=== PATIENT | male | born 1990 | race Caucasian/White ===

== ENCOUNTER 2022-04-21 16:30 | Emergency (ER) | payer OTHER ==
[2022-04-21 16:35] VITALS: RESP 18; TEMP 98
[2022-04-21] MEDS ORDERED: KETOROLAC 15 MG/ML 1 ML VIAL IM STA (17:16)
--- NOTE | 2022-04-21 17:41 | ED ---
Extremity Problem HPI - General Chief complaint: Extremity Problem,Nontraumatic Stated complaint: leg pain Time Seen by Provider: 04/21/22 16:35 Source: patient, RN notes reviewed Mode of arrival: ambulatory Limitations: no limitations - History of Present Illness Initial comments: Patient is a 32-year-old male presents the emergency room with complaints of left thigh pain which starts in his groin and radiates downward into his thigh. He denies any range of motion impairment not related to pain. He denies any trauma or swelling. He reports that the pain began approximately 3 weeks ago after lifting a heavy object at work. He has been evaluated by urgent care at his primary care provider previously. X-ray of his left femur was negative according to the patient at urgent care recently. He was placed on muscle relaxer and a Medrol Dosepak which is helping some but not significantly with his pain. He does continue to work regularly lifting heavy objects. He denies any popping or locking of the joint. He denies any crying bulge or weakness. He denies any numbness, tingling, fevers, or chills. He denies any other significant past medical history complaints or concerns at this time. - Related Data Previous Rx's Medication Instructions Recorded predniSONE 50 mg PO DAILY 5 Days #5 tablet 04/21/22 Allergies Allergy/AdvReac Type Severity Reaction Status Date / Time No Known Allergies Allergy Verified 04/21/22 16:35 Review of Systems ROS Statement: Those systems with pertinent positive or pertinent negative responses have been documented in the HPI. ROS Other: All systems not noted in ROS Statement are negative. Past Medical History Past Medical History: No Reported History History of Any Multi-Drug Resistant Organisms: None Reported Past Surgical History: Appendectomy Past Psychological History: No Psychological Hx Reported Smoking Status: Never smoker Past Alcohol Use History: None Reported Past Drug Use History: None Reported General Exam Limitations: no limitations General appearance: alert, in no apparent distress Head exam: Present: atraumatic, normocephalic, normal inspection Eye exam: Present: normal appearance, PERRL, EOMI. Absent: scleral icterus, conjunctival injection, periorbital swelling ENT exam: Present: normal exam, mucous membranes moist Neck exam: Present: normal inspection Respiratory exam: Absent: respiratory distress, accessory muscle use Left Hip exam: Present: normal inspection, full ROM. Absent: tenderness Upper Leg exam: Present: normal inspection, full ROM, tenderness. Absent: swelling, abrasion, laceration, ecchymosis, deformity, crepitus, dislocation, erythema Neurovascular tendon exam: Present: no vascular compromise Gait: observed and normal Back exam: Present: normal inspection, full ROM. Absent: tenderness, muscle spasm, paraspinal tenderness, vertebral tenderness Neurological exam: Present: alert, oriented X3, CN II-XII intact Psychiatric exam: Present: normal affect, normal mood Skin exam: Present: warm, dry, intact, normal color. Absent: rash Course Vital Signs 04/21/22 04/21/22 16:31 18:16 Temperature 98.0 F Pulse Rate 71 78 Respiratory 18 18 Rate Blood Pressure 151/101 148/88 O2 Sat by Pulse 100 99 Oximetry Medical Decision Making - Medical Decision Making 32-year-old male presenting to the emergency room with complaints of left thigh pain ongoing for approximately 3 weeks after lifting a heavy object at work. Continues to work regularly. Evaluated by urgent care with x-ray of the left femur without abnormality seen. Exam unremarkable. Tenderness to quadricep in multiple areas. Full range of motion. No indication for further diagnostic imaging at this time. No laboratory studies indicated at this time. Will give Toradol IM for pain and monitor response. Pain improved with injection. No need for further diagnostic imaging or testing. Will place on higher dose steroid bursts advised to stop Medrol Dosepak and no other NSAIDs while taking medication. Encouraged rest and avoidance of heavy lifting. Will discharge home with conservative management advised to follow-up with his primary care provider for further imaging and workup. Case discussed with Dr. Fung. Disposition Clinical Impression: Quadriceps tendinitis Disposition: HOME SELF-CARE Condition: Stable Instructions (If sedation given, give patient instructions): Tendinitis (ED), Exercise Safety (ED) Additional Instructions: Please complete dose of steroids prescription as prescribed. Do not take any other NSAIDs or steroids when taking prednisone. May continue muscle relaxer as prescribed by urgent care to avoid heavy lifting. Range of motion as tolerated encouraged. Please follow-up with your primary care provider's office for further evaluation and workup of your pain. Please return to the Emergency Department if symptoms worsen or any other concerns. Prescriptions: predniSONE 50 mg PO DAILY 5 Days #5 tablet Is patient prescribed a controlled substance at d/c from ED?: No Referrals: None,Stated [REFERRING] - 1-2 days
[2022-04-21 18:16] VITALS: BP 148/88; PULSE 78
== END 2022-04-21 18:16 | disposition home or self-care (01) ==
LOC: EC 16:30
DX: M77.8 Other enthesopathies, not elsewhere classified (principal)
CPT/HCPCS: 99283; 96372; J1885

== ENCOUNTER → 2022-06-03 | Outpatient (CLI) | payer OTHER ==
--- NOTE | 2022-06-03 10:01 | MR ---
EXAMINATION TYPE: MR lumbar spine wo con DATE OF EXAM: 06/03/2022 COMPARISON: Lumbar spine radiograph 05/12/2022. HISTORY: Lumbar and L hip pain TECHNIQUE: Multiplanar, multisequence images of the lumbar spine were acquired without IV contrast. FINDINGS: Lumbar segments are intact. No paraspinal masses are identified. Conus medullaris has a normal appe arance. Multilevel disc desiccation present L1-L2: Eccentric left broad-based disc bulge with annular fissure. Facet arthropathy demonstrated. Mo derate spinal canal stenosis at this level. Right neural foramen is patent. Mild left neural foramina l stenosis. L2-L3: Left central disc protrusion with extension into the subarticular zone and caudal extrusion of approximately 7 mm. There is facet arthropathy with moderate spinal canal stenosis. Mild bilateral n eural foraminal stenosis. L3-L4: Broad-based disc bulge and ligamentum flavum buckling and facet hypertrophy contribute to mild spinal canal stenosis. Mild bilateral neural foraminal stenosis. L4-L5: Broad-based disc bulge and ligamentum flavum buckling and facet hypertrophy contribute to mode rate spinal canal stenosis. Mild to moderate bilateral neural foraminal stenosis. L5-S1: Broad-based disc bulge with facet arthropathy. There is mild central canal stenosis. Mild-to-m oderate bilateral neural foraminal stenosis. IMPRESSION: 1. L2-L3 disc herniation with caudal extrusion resulting in moderate spinal canal stenosis. 2. Multilevel degenerative disc disease with varying degrees of spinal canal stenosis and neuroforam inal stenosis as described above.
--- NOTE | 2022-06-04 05:21 | MR ---
EXAMINATION TYPE: MR hip LT wo con DATE OF EXAM: 06/03/2022 COMPARISON: None HISTORY: Lumbar and L hip pain MRI scan of the left hip. Multiplanar multi echo imaging of the pelvis and left hip without contrast. The proximal femurs are intact. Pelvic ring is intact. No evidence of avascular necrosis. Hip joint s paces are fairly normal. Bladder distends smoothly. No free fluid in the pelvis. No sign of a pelvic mass. No evidence of a soft tissue mass. No pathologic fluid collection. No evidence of any significa nt hip joint effusion. IMPRESSION: Negative MRI scan of the left hip.
== END | disposition home or self-care (01) ==
LOC: RADMRIMAIN 07:38
PROVIDERS: ATTEND Orthopaedic Surgery
DX: M54.50 Low back pain, unspecified (principal); M25.552 Pain in left hip
CPT/HCPCS: 72148

== ENCOUNTER → 2022-08-07 | Outpatient (CLI) | payer OTHER ==
[2022-08-07 11:02] VITALS: BP 148/89; PULSE 74; RESP 18; TEMP 97.6
--- NOTE | 2022-08-07 14:33 | P.PAINPG ---
PQRS Measure Charge Sheet Comment: HISTORY OF PRESENT ILLNESS: 32 yr old male w at side as a referral from Dr Julio presents today w severe and chronic secondary to for evaluation. Pt states pain level is at 9 /10 in intensity, constant, localized in the mid lumbar spine, burning in character w shooting pain towards the LLE. Pain is provoked by twisting, lifting, bending. Pain is alleviated by home exercise daily, heat, medications (Naproxen, Prednisone taper), repositioning and rest. PMH: OA PSH: Appendectomy (2009) SH: Negative x 3. . FH: Sister- DM. All: NKDA Meds: See list REVIEW OF ORGAN SYSTEMS: CONSTITUTIONAL: No fevers or chills. No recent weight loss. NEUROLOGICAL: + numbness and tingling along the distal extremities. No seizure disorders or headaches. MUSCULOSKELETAL: + pain PSYCHIATRIC: Denies current depression or suicidal thoughts. Physical Examinations : Constitutional : Cooperative , not in acute distress . Neurologic : Cranial nerve II to XII intact. No focal neurological deficits. Psychiatric : alert & oriented x 3. Matching mood & appropriate affect. Judgment & insight intact. Musculoskeletal : Cervical Spine Motor strength in the deltoid and biceps: Normal right side. Normal Left side Motor strength biceps and the wrist extensors: Normal right side . Normal left side Motor strength in the triceps muscle: Normal right side. Normal left side Deep tendon reflexes: Normal at the biceps. Normal at Brachioradialis. Normal at triceps Vertebral body tenderness to deep palpation over Cervical facet loading test: positive bilaterally Spurling test: positive bilaterally Neck distraction test: positive maggie aterally Markus sign: positive bilaterally Lumbar spine Motor strength lower extremities ,thigh and legs 5/5 Right side , 5/5 Left side Deep tendon reflexes : Normal Knee Jerk. Normal Ankle Jerk Vertebral body tenderness over L2 Lumbar facet Loading Test: positive Right / positive Left Range of motion of the lumbar spine Flexion 30 degrees, extension 10 degrees Straight Leg Raise test: Left/ Right positive at degree Maryam test: positive right / positive left. Severe tenderness over the Sacroiliac joint on the Right / Left sides Gaenslen test: positive bilaterally Seated flexion test: positive bilaterally. Sacral spine : Severe tenderness over the Sacroiliac joint: right side / left side Range of motion: Flexion of the lumbar spine <60 degrees Range of motion: Extension of the lumbar spine <20 degrees Gaenslen's Test positive Winston's Test positive Maryam test: positive right side / left side Thigh Thrust Test Sacral Thrust Test Imaging: MRI without contrast of the lumbar spine from 06/10/22 reviewed Assessment/ Plan : Lumbar DDD, Lumbar spondylosis Recommendation of LIANET L2-L3. May need a series of injections, up to 3 within a 6 mo period for optimal pain relief. Risks, benefits of procedure discussed and patient verbalized understanding. Admits to aspirin or anti- coagulant use or medical history of diabetes. Protocol for discontinuation/ continuation of medications michelle procedure discussed. All questions answered. I have spent greater than 30 minutes on patient care today. Dr Cabrera was available by phone for the evaluation of this patient. The time was used to review the medical records including relevant urine studies and Prescription history (MAPs), review of the available imaging, evaluation and examination of the patient, coordination of care with the medical staff and if applicable referring physicians, as well as creation of the medical record - Pain Location Lower Back Non-Pharmacological Interventions: Heat, Home Exercise, Stretching Pharmacological Interventions: PRN Medication Home Medications: Ambulatory Orders predniSONE 50 mg PO DAILY PRN 08/07/22 Controlled Substance Measures - Controlled Substance Measures Is patient prescribed a controlled substance at discharge?: No
== END ==
LOC: PNWHC3 10:27
PROVIDERS: ATTEND Specialist
DX: M47.816 Spondylosis without myelopathy or radiculopathy, lumbar region (principal); M51.36 Other intervertebral disc degeneration, lumbar region; M19.90 Unspecified osteoarthritis, unspecified site
CPT/HCPCS: 99211

== ENCOUNTER → 2023-11-11 | Outpatient (CLI) | payer OTHER ==
--- NOTE | 2023-11-11 11:52 | MR ---
EXAMINATION TYPE: MR lumbar spine wo con DATE OF EXAM: 11/11/2023 COMPARISON: 06/03/2022 HISTORY: Lower back pain, BLE radiculopathy. TECHNIQUE: T1 and T2 axial and sagittal images of the lumbar spine are submitted. FINDINGS: There is no abnormal signal seen within the visualized spinal cord or paraspinal soft tissu es. There is loss of normal lordosis with straightening of the lumbar spine. Incidental note made of a retroaortic left renal vein. At L1-2 there is degenerative disc disease with broad-based disc herniation greater paracentrally to the left with moderate canal stenosis and bilateral foraminal encroachment. Mild facet arthropathy. F indings similar to prior exam. At L2-3 there is degenerative disc disease with broad-based disc herniation, moderate canal stenosis. There is bilateral foraminal engorgement, facet arthropathy and ligamentum urgently. There remains a component of disc extrusion posterior to the upper margin of the L3 segment which may be slightly im proved. At L3-4 there is circumferential disc bulging with no canal stenosis or focal herniation. Facet arthr opathy and ligamentum flavum hypertrophy. Mild bilateral foraminal At L4-5 there is broad-based central disc herniation with facet arthropathy, bilateral foraminal bulg ing and moderate canal stenosis. Following the disc appears to extend along the upper margin of L5 ve rtebral segment compatible with disc extrusion and similar to the prior exam. At L5-S1 there is degenerative disc disease with broad-based central disc protrusion, facet arthropat hy and mild right and moderate left foraminal protrusion. Borderline central stenosis. Findings IMPRESSION: 1. Multilevel disc herniation, canal stenosis and foraminal encroachment appears stable as discussed above. Findings most marked at L1-2, L2-3 and L4-5.
== END | disposition home or self-care (01) ==
LOC: RADMRIMAIN 10:40
PROVIDERS: ATTEND Orthopaedic Surgery
DX: M48.061 Spinal stenosis, lumbar region without neurogenic claudication (principal); M51.16 Intervertebral disc disorders with radiculopathy, lumbar region
CPT/HCPCS: 72148

== ENCOUNTER → 2024-02-05 | Outpatient (CLI) | payer OTHER ==
[2024-02-05 19:04] LABS: INR 1.01 sec (0.93-1.11); Prothrombin Time 10.9 sec (9.9-11.9)
[2024-02-06 03:45] LABS: HCT 40.3 % (39.6-50.0); HGB 13.4 g/dL (13.0-17.0); MCH 27.9 pg (27.0-32.0); MCHC 33.3 g/dL (32.0-37.0); Mean Platelet Volume 10.4 FL (9.5-12.2); NRBC Per 100 WBC 0 X 10*3/uL (0.00-0.01); Platelet Count 395 X 10*3/uL (140-440); RDW 12.6 % (11.5-14.5); WBC 4.25 X 10*3/uL (4.50-10.00)
[2024-02-06 05:04] LABS: BUN/Creat Ratio 15.14 Ratio (12.00-20.00); Blood Urea Nitrogen 10.6 mg/dL (9.0-27.0); Glucose 98 mg/dL (70-110)
[2024-02-06 05:05] LABS: ALT 32 U/L (10-49); AST 25 U/L (14-35); Albumin 4.6 g/dL (3.8-4.9); Albumin/Globulin Ratio 1.92 Ratio (1.60-3.17); Alkaline Phosphatase 52 U/L (41-126); Calcium 9.5 mg/dL (8.7-10.3); Carbon Dioxide 24.8 mmol/L (21.6-31.8); Chloride 108 mmol/L (96-109); Globulin 2.4 g/dL (1.6-3.3); Potassium 4.2 mmol/L (3.5-5.5); Sodium 143 mmol/L (135-145); Total Bilirubin 0.2 mg/dL (0.3-1.2)
== END | disposition home or self-care (01) ==
LOC: LABPAT 14:29
PROVIDERS: ATTEND Orthopaedic Surgery
DX: M51.26 Other intervertebral disc displacement, lumbar region (principal); M48.061 Spinal stenosis, lumbar region without neurogenic claudication
CPT/HCPCS: 80053; 82306; 85027; 85610; 86850; 86900; 86901; 87070

== ENCOUNTER 2024-02-16 05:44 | Day surgery (SDC) | payer OTHER ==
[~2024-02-16 05:44] MED LIST: ONDANSETRON 4 MG/2 ML VIAL IVP PRN; TRANEXAMIC 1,000 MG/100ML-NACL 1,000 MG in SALINE 1 100ML.BAG IVPB PRN
[2024-02-16] MEDS ORDERED: LIDOCAINE 1% (10MG/ML) FOR IV START INTRADERMA PRN (06:03)
[2024-02-16] MEDS ORDERED: DEXAMETHASONE SOD PHOSPHATE 4 MG/ML 1 ML VIAL IV ONE (06:03)
[2024-02-16] MEDS: ACETAMINOPHEN TAB 500 MG TAB PO PRN (06:13)
[2024-02-16] MEDS: GABAPENTIN 300 MG CAP PO PRN (06:14)
--- NOTE | 2024-02-16 06:18 | P.HPOR ---
History of Present Illness H&P Date: 02/16/24 .T:Title: BRIGITTE MIX [facility] HISTORY AND PHYSICAL Age: 33 year Height: 5'7" Weight: 205 lbs BMI: 29.76 kg/m2 Occupation: [employer] VAS: 2 CC: Re-check on low back pain / Review MRI lumbar spine results HISTORY: Mr. Corbin presents to the office today, 11/11/23, for re-evaluation of lo back pain and to review MRI lumbar spine results. He continues plan of low back pain as well as lower extremity radiculopathy and pain that goes down the front of his thighs and into his legs. He complains of pain that goes down the back of his legs and his feet well. He states continued weakness in his right lower extremity and left lower extremity to more extend. He denies any bowel or bladder issues. Denies perineal numbness or tingling at this time. Patient denies any f/c/sob/cp, perineal numbness or tingling, bowel or bladder incontinence/retention. Patient is ambulatoryindependently today. The patients' past social, medical, family, surgical history, as well as review of systems, have been reviewed. Please refer to the Neurosurgery History and Physical form that has been scanned into our electronic medical record system. 16 points review of systems completed and as stated in HPI, all other systems reviewed are negative. PAST TREATMENTS: PAST IMAGING: - Yes TRAUMA RELATED: - No WORK RELATED: - No PT IN LAST 6 MONTHS: - Yes (stopped approximately 5 to 6 months ago_; made symptoms worse PHYSICIAN DIRECTED HOME EXERCISE PROGRAM: - Yes; no significant relief ACTIVITY MODIFICAITON: - Yes MEDICATIONS: - OTC Tylenol, OTC Ibuprofen, & Prednisone 20 mg ALTERNATIVE INTERVENTIONS (CHIROPRACTIC, ACCUPUNCTURE, MASSAGE, RICE): - Home ice therapies and rest; mild, temporary relief BRACING: - No INJECTIONS (LIANET, TF, RFA): - Yes; lumbar ESIs (x1-2) without relief MEDICAL HISTORY: Social History: Reviewed, see appropriate section of the chart for details. Family History: Reviewed, see appropriate section of the chart for details. P2 Past Medical History: Reviewed, see appropriate section of the chart for details. P1Rx: ibuprofen 200 mg tablet Ref: 0 Rx: TylenoL 325 mg tablet Ref: 0 Rx: predniSONE 20 mg tablet Ref: 0 IMAGING Study Findings XRAY No new x-rays taken in office today. Please see previous notes. CT N/A MRI Date: 11/11/2023 Location: [facility] Hospital Region:Lumbar Contrast:N MRI is reviewed and demonstrates multilevel disc herniation and spondylosis with varying degrees of stenosis. At L1-L2 there is disc herniation which is paracentral on the left-hand side causing foraminal stenosis as well as central stenosis which is moderate to severe. At L1-L2 there is disc herniation paracentral to the left hand side was also causing moderate stenosis. At L2-L3 there is central disc herniation which is causing mild stenosis. There is facet arthropathy with hypertrophy as well as bony facets. L3-L4 there is central disc herniation which is also causing mild to moderate stenosis with facet arthropathy and bogginess. At L4-L5 there is central disc herniation which is broad-based and wide causing central stenosis and bilateral foraminal stenosis with all you facets facet hypertrophy and ligamentum hypertrophy. At L5-S1 there is central disc herniation which is smaller causing mild stenosis. There are some facet arthropathy at this level as well which is [id number]. There is bilateral foraminal stenosis at L5-S1. All levels exhibited advanced spondylytic changes for age. There is flattening of the normal lumbar lordosis overall. No acute fracture or dislocations otherwise noted. PHYSICAL EXAM: General: AOX3, NAD, Well hydrate, Well nourished HEENT: No lumps or masses Extremities: No color changes, no pooling INTEGUMENT: Hairy Patches: ABSENT Dorsal Skin Dimples: Normal [employer] spots: ABSENT Surgical Incisions: None Muscle Appearance: Well formed, no atrophy PALPATION: Midline:NO Paracervical:NO Parathoracic:NO Paralumbar:Minimal SIJ TESTING: Yes TTP: No [place] Finger: No FABER4: No Compression:No Distraction:No Thigh thrust:No Hip thrust: No POSTURAL BALANCE: Coronal:BALANCED Sagittal:BALANCED Shoulder height: LEVEL Pelvic Girdle: LEVEL ROM AND APPEARANCE: Neck: UNRESTRICTED Lumbar:RESTRICTED Shoulders: Symmetrical Hips: Symmetrical Knees: Symmetrical Hands: Symmetrical Feet: Symmetrical VASCULAR STATUS: RUE- 2 LUE-2 RLE-2 LLE-2 Edema: NONE NEUROLOGICAL EXAMINATION: Mental Status: Awake, alert, oriented fully with normal attention, concentration and memory. Fluent appropriate speech. CRANIAL NERVES: I: Olfactory not tested. II: Visual acuity normal, no visual field deficit noted with confrontation. III,IV: Normal pupillary reflexes & intact extraocular movements without nystagmus. V,: Intact symmetrical facial sensation. VII: Intact symmetrical facial motor movementVIII: Hearing intact. IX,X: Intact gag, swallow, & normal voice. XI: Sternocleidomastoid, trapezius function intact. XII: Tongue midline with normal movements. TENSIONING: L'HERMITTE'S SIGN NEG SPURLUNG'S SIGN NEG CUBITAL COMPRESSION NEG TINELS AT WRIST NEG SLR/CROSSED SLR POS b/l MOTOR EXAM (0-5/5, NT) Muscle appearance:Symmetrical, without signs of atrophy or dystrophy UPPER EXTREMITY RIGHT LEFT Shoulder Abduction 5 5 Biceps 5 5 Triceps 5 5 Wrist Extension 5 5 Hand Intrnsics 5 5 [employer] Titles 5 5 LOWER EXTREMITY RIGHT LEFT Hip Flexion 4- 5 Knee Extension 4 5 Knee Flexion 5 5 Dorsiflexion 4 4 Plantarflexion 4 4 EHL 4 4 FHL 5 5 -Hand and finger dexterity intact bilaterally? YES -Dysdiadochokinesia examination negative bilaterally? YES -Toe heel walk / heel-toe walk intact while maintaining satisfactory balance? NO, PAIN -Squatting/straightening w/o assistance to a min of 60 degree knee flexion? Can do, but poor and with significant discomfort. -Single leg stance: ABLE but much weaker on the LEFT -Trendelenburg sign NEGATIVE B/L REFLEXES (0-4/2, NT): RUE- 2LUE- 2 RLE- 2 LLE- 2 PATHOLOGICAL REFLEXES: RIGHT LEFT LIZAMA'S ABSENT ABSENT CLONUS ABSENT ABSENT BABINSKI ABSENT ABSENT Rectal Tone: INTACT SENSATION (0-4, NT): RUE-2LUE-2 RLE-2 LLE-2 Dermatomal deficit: L2-3 LEFT, L4-5 RIGHT GAIT AND FUNCTIONAL EVALUATION: Ambulatory aids - NDEPENDENT Rombergs test - NEG IMPRESSION: It was my pleasure to have seen and examined Eliezer. I reviewed the patient's clinical syndrome, physical findings, and imaging studies during the appointment today. It is my impression that the patient has a diagnosis of. 1. 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 LE weakness 4. Low back pain PLAN: THERAPIES -Cont with ice as warrented -Cont with supplementation Vit D, Vit C, Ca2+, High protein diet -OK for massage or other alternative treament modalities as able. If it exacerbates your sx do not continue ACTIVITY -Avoid any heavy or excessive BLPPT MEDICATIONS -Take as directed IMAGING -MRI of the lumbar spine reviewed today in office with the patient SURGICAL RECOMMENDATION -L1-L2 MINIMALLY INVASIVE LAMINOFORAMINOTOMY LEFT DISCUSSION: -i HAD A LONG DISCUSSION WITH THE PATIENT ABOUT THE POTENTIAL SURGICAL INDICATIONS WELL WELL NONSURGICAL TREATMENT. hE HAS TRIED NONSURGICAL OPTIONS INCLUDING MEDICATIONS PHYSICAL THERAPY AND INJECTIONS ALL OF WHICH HAVE NOT HELPED HIM. hE HAS INCREASE IN SYMPTOMS WELL MORE ACUTE ONSET OF SYMPTOMS WORSENING OF SYMPTOMS AND SO hE HAS ELECTED FOR SURGICAL INTERVENTION AT THIS TIME. dUE TO HIS SYMPTOMS BEING WORSE IN HIS THIGHS WELL WEAKNESS IN HIS LEGS. wE DISCUSSED DOING A MINIMALLY INVASIVE APPROACH l1-l2 REGION FOR DECOMPRESSION HE UNDERSTANDS THAT THIS IS ONLY 1 LEVEL OF HIS STENOSIS AND HE MAY NEED FURTHER OPERATION MULTILEVEL STENOTIC FEATURES. hE WANTS TO TRY AND KEEP THE SURGERY SMALL POSSIBLE AT THIS TIME. hE IS AM ENABLE TO FURTHER SURGERY IF NEEDED HOWEVER HE DOES NOT WANT A LARGE SURGERY AT THIS TIME. wE DISCUSSED THIS AT LENGTH AND HE IS COMFORTABLE WITH THIS. Spine Surgery Risk Review Mr. Corbin is presenting for evaluation of low back and bilateral lower extremity pain, bilateral lower extremity numbness, tingling, and weakness, urinary incontinence. It was my pleasure to have seen and examined Mr. Corbin. In our visit today we have had a chance to go over subjective complaints, physical examination findings and treatments including the natural course history without intervention and various interventional options. The patients imaging demonstrates: MRI is reviewed and demonstrates multilevel disc herniation and spondylosis with varying degrees of stenosis. At L1-L2 there is disc herniation which is paracentral on the left-hand side causing foraminal stenosis as well as central stenosis which is moderate to severe. At L1-L2 there is disc herniation paracentral to the left hand side was also causing moderate stenosis. At L2-L3 there is central disc herniation which is causing mild stenosis. There is facet arthropathy with hypertrophy as well as bony facets. L3-L4 there is central disc herniation which is also causing mild to moderate stenosis with facet arthropathy and bogginess. At L4-L5 there is central disc herniation which is broad-based and wide causing central stenosis and bilateral foraminal stenosis with all you facets facet hypertrophy and ligamentum hypertrophy. At L5-S1 there is central disc herniation which is smaller causing mild stenosis. There are some facet arthropathy at this level as well which is [id number]. There is bilateral foraminal stenosis at L5-S1. All levels exhibited advanced spondylytic changes for age. There is flattening of the normal lumbar lordosis overall. No acute fracture or dislocations otherwise noted. On physical exam, Mr. Corbin demonstrates: I have explained to the patient that as their condition progresses it will cause further neurological deficits and eventual paralysis. Based on the patients imaging, physical exam, and the rapid progression and disabling nature of their symptoms, at this time I recommend surgery in the form of a: [Procedure] . I discussed the risk and benefits of this procedure at length with Mr. Corbin. The patient agreed to considered pursuing the procedure abovementioned. Prior to surgery, she should follow up with her PCP (Cardio, ID, IM etc) for clearance. Questions were invited and answered, and the patient wishes to proceed as outlined below. Currently, I am recommendin.[Proposed Surgery] 2.Follow up with PCP for surgical clearance 3.Review of surgical risks and benefits as well as an educational packet on the proposed surgical procedure. Risks: All surgical procedures come with inherent risks, including those related to positioning, anesthesia, intraoperative findings, and postoperative complications. It is important to understand that surgery does not come with any guarantee of a successful outcome as complications and adverse events are always possible. The patient was given a handout in office today discussing the surgical procedure and risks associated with the intervention, both of which were discussed with the patient. These risks include but are not limited to the following: * Experiencing same, different or even worse symptoms in back, neck, arms, or legs compared to before surgery. Requiring further surgery or other forms of treatment presently or at some time in the future at same or other levels of the intended spine surgery. On an extreme but fortunately relatively rare basis severe complication such as blindness, stroke, heart attack, temporary and/or permanent nerve injury, para lysis, coma, or may occur, sometimes without known explanation. Surgical complications may include but are not limited to risk of infection, fluid accumulation in the surgical dissection site, including a seroma or hematoma, that requires additional surgery, wound drainage, bleeding, new numbness or weakness, vision changes/loss, spinal fluid leakage, non-healing and/or infected incision, headaches, difficulty or inability to swallow, hoarseness, hemopneumothorax, pneumothorax, impotence, retrograde ejaculation, vaginal dryness; injury to nerves, spinal cord, blood vessels, lymphatics or other vital organs (i.e., bowel injury, injury to the great vessels); heterotopic bone formation; complications related to the hardware such as screws, rods, cages including misplaced hardware, device failure, instrumentation at the wrong spine level, hardware fracture/breakage, or hardware loosening; vertebral failure of the spinal column above or below the newly placed hardware; retained surgical instrumentations or devices and the need for further surgery. * Medical risks of the planned spine surgery include but are not limited to generalized Infections to the whole body or local areas outside of the surgical site (sepsis), heart attack, bleeding, anaphylaxis, meningitis, seizure, epilepsy, hearing loss, burn banegas, laceration of the head or other areas of the body, bruising, hypersensitivity of the skin, bladder over distension; allergic reaction; shoulder injury related to positioning; fat, blood and air clots to other areas of the body like heart, lungs, brain; failure of internal organs such as lungs, kidneys, liver and excessive bleeding. If blood transfusions are necessary, note that transfusions may cause intolerance reactions such as anaphylaxis or other complex reactions. Despite best efforts, the results of spine surgery might not heal in terms of bone, soft tissues such as skin, fascia, ligaments, and joints. Additionally, in order to achieve best possible results, spine surgery may be carried out beyond the initially planned levels and involve decompression, fusion including insertion of hardware at levels other than the original intended area of surgi brooks interest change some portions of the procedure in order to ensure the best possible outcomes. With spine surgery and spinal fusion, there are different off label uses of instrumentation (devices, implants and hardware) as well as biological substances (bone morphogenic proteins, demineralized bone matrix) as well as using extra bone from allograft sources (i.e. cadaver bone) or autograft (iliac crest bone, ribs, or the spine itself). The patient has been given information about these practices and their inherent risks and benefits. [facility] is an educational center that serves as a training facility for neurosurgical and orthopedic DUAL [employer] and Nursing students. Physician assistants are medically trained surgical providers who function in the outpatient, inpatient, and operating room setting under the direct supervision of the attending surgeon. [facility] has multiple operating rooms with single and overlapping rooms running daily. They currently function under the required guidelines as produced by the [facility] with regards to the overlapping rooms and will continue to comply with changes to this policy as they occur. The requirements include and are complied with as follows: (1) the critical portions of the overlapping rooms will not occur at the same time, (2) the attending physician will be physically present during the critical portions of the procedure and immediately available during the entire case, and (3) a back-up attending is designated should the primary attending not be immediately available. The patient has had a chance to review all the listed information, has been given print outs detailing this information, and has had all his/her questions answered to their satisfaction. It was my pleasure to have seen and examined Mr. Corbin. In our visit today we have had a chance to go over my understanding of our patient's current condition, the natural course history without intervention and various interventional options. Questions were invited and answered, and the patient wishes to proceed as outlined above. I have seen and examined the patient for 25 minutes and we have spent more than 50% of the time in repeat and detailed counseling about the patient's condition, its natural course history with out and as much as can be predicted with surgery and re-review of various surgical treatment options. In conclusion, Mr. Corbin requested we proceed with the above suggested surgery and are willing to accept risks and limitations of the suggested surgery as nature of the disease process and our best attempts at treatment for the condition. Thank you again for allowing us to be part of your patient's care. Please don't hesitate to contact me if you have any further questions. FOLLOW UP: Pre-operative Evaluation (1 week prior to scheduled surgery) PATIENT EDUCATION: Medications Reviewed: YES In our visit today Mr. Corbin and I have had a chance to go over my understanding of the patient's current condition, the natural course history without intervention and various interventional options. Questions were invited and answered, and the patient wishes to proceed as outlined above. I will be sure to keep you updated after Mr. Corbin returns here for further follow-up. Thank you again for your referral. Please do not hesitate to contact me if you have any further questions. Signed and authenticated by: Emir Molina [facility] [address] [place] [address] This message is confidential, intended only for the named recipient(s) and may contain information that is privileged or exempt from disclosure under applicable law. If you are not the intended recipient(s), you are notified that the dissemination, distribution or copying of this information is strictly prohibited. If you received this message in error, please notify the sender then delete this message. # SIGNED BY Emir Julio (GOO)02/16/2024 06:17AM Past Medical History Past Medical History: No Reported History Additional Past Medical History / Comment(s): 3 ruptured discs. spinal stenosis. has white coat syndrome History of Any Multi-Drug Resistant Organisms: None Reported Past Surgical History: Appendectomy Past Anesthesia/Blood Transfusion Reactions: Postoperative Nausea & Vomiting (PONV) Smoking Status: Never smoker - Past Family History Father Family Medical History: Cancer Medications and Allergies Home Medications Medication Instructions Recorded Confirmed Type Buprenorphine-Nalox 8-2 mg Tab 1 tab SUBLINGUAL HS 04/29/23 02/15/24 History [Suboxone 8-2 mg Tab] Allergies Allergy/AdvReac Type Severity Reaction Status Date / Time No Known Allergies Allergy Verified 02/15/24 08:06 Physical Examination Osteopathic Statement: *. No significant issues noted on an osteopathic structural exam other than those noted in the History and Physical/Consult.
[2024-02-16] MEDS: IV FLUID CONTINUATION 1,000 ML IV ONE ×4 (06:20→10:37)
[2024-02-16] MEDS: ONDANSETRON 4 MG/2 ML VIAL IVP ONE (06:32)
[2024-02-16] MEDS: LACTATED RINGERS 1,000 ML IV SCH (06:53)
[2024-02-16] MEDS ORDERED: MIDAZOLAM 2 MG/2 ML VIAL IV PRN (07:00)
[2024-02-16] MEDS ORDERED: SUCCINYLCHOLINE CHLORIDE 200 MG/10 ML VIAL IV ONE (07:23)
[2024-02-16] MEDS ORDERED: MIDAZOLAM 2 MG/2 ML VIAL ONE (07:23)
[2024-02-16] MEDS ORDERED: PROPOFOL 10 MG/ML 20 ML VIAL IV ONE (07:23)
[2024-02-16] MEDS ORDERED: KETAMINE HCL IN 0.9 % NACL 50 MG/5 ML SYRINGE ONE (07:23)
[2024-02-16] MEDS ORDERED: GLYCOPYRROLATE 0.2 MG/ML 2 ML VIAL ONE (07:23)
[2024-02-16] MEDS ORDERED: NEOSTIGMINE 1 MG/ML 10 ML VIAL ONE (07:23)
[2024-02-16] MEDS ORDERED: TRANEXAMIC 1,000 MG/100ML-NACL PREMIX BAG ONE (07:23)
[2024-02-16] MEDS ORDERED: fentaNYL (PF) 50 MCG/ML 2 ML AMP ONE (07:23)
[2024-02-16] MEDS ORDERED: LIDOCAINE 1% INJ 10MG/ML (20 ML MDV) ONE (07:23)
[2024-02-16] MEDS ORDERED: KETOROLAC 30 MG/ML 1 ML VIAL ONE (07:23)
[2024-02-16] MEDS ORDERED: HYDROmorphone (PF) 1 MG/ML ONE (07:23)
[2024-02-16] MEDS ORDERED: ROCURONIUM 10 MG/ML (5 ML VIAL) IV ONE (07:23)
[2024-02-16] MEDS: THROMBIN (BOVINE) 5,000 UNIT VIAL TOPICAL ONE (08:01)
[2024-02-16] MEDS: LIDOCAINE 2%-EPI 1:100,000 20 ML VIAL SQ ONE ×2 (08:01)
[2024-02-16] MEDS: BUPIVACAINE (PF) 0.5% 30 ML VIAL SQ ONE ×2 (08:01)
--- NOTE | 2024-02-16 09:12 | P.OP ---
Date of Procedure: 02/16/24 Preoperative Diagnosis: Current Active Problems Herniated nucleus pulposus, L1-2 left (Acute) Spinal stenosis of lumbar region with radiculopathy (Acute) Postoperative Diagnosis: Current Active Problems Herniated nucleus pulposus, L1-2 left (Acute) Spinal stenosis of lumbar region with radiculopathy (Acute) Procedure(s) Performed: 1. L1-2 LEFT, MINIMALLY INVASIVE LAMINOFORAMINOTOMY WITH MICRODISCECTOMY USE OF IO MICROSCOPE Implants: NONE Anesthesia: GETA Surgeon: Emir Julio Asset Coordinator #1: Reece Giraldo (WAS PRESENT AND ASSISTED WITH ALL ASPECTS OF THE CASE FROM POSITION TO DRESSING PLACEMENT) Estimated Blood Loss (ml): 25 IV fluids (ml): 1,200 Urine output (ml): 0 Pathology: none sent Condition: stable Disposition: PACU Indications for Procedure: Mr. Corbin is presenting for evaluation of low back and bilateral lower extremity pain, bilateral lower extremity numbness, tingling, and weakness, urinary incontinence. It was my pleasure to have seen and examined Mr. Corbin. In our visit today we have had a chance to go over subjective complaints, physical examination findings and treatments including the natural course history without intervention and various interventional options. The patients imaging demonstrates: MRI is reviewed and demonstrates multilevel disc herniation and spondylosis with varying degrees of stenosis. At L1-L2 there is disc herniation which is paracentral on the left-hand side causing foraminal stenosis as well as central stenosis which is moderate to severe. At L1-L2 there is disc herniation paracentral to the left hand side was also causing moderate stenosis. At L2-L3 there is central disc herniation which is causing mild stenosis. There is facet arthropathy with hypertrophy as well as bony facets. L3-L4 there is central disc herniation which is also causing mild to moderate stenosis with facet arthropathy and bogginess. At L4-L5 there is central disc herniation which is broad-based and wide causing central stenosis and bilateral foraminal stenosis with all you facets facet hypertrophy and ligamentum hypertrophy. At L5-S1 there is central disc herniation which is smaller causing mild stenosis. There are some facet arthropathy at this level as well which is [id number]. There is bilateral foraminal stenosis at L5-S1. All levels exhibited advanced spondylytic changes for age. There is flattening of the normal lumbar lordosis overall. No acute fracture or dislocations otherwise noted. On physical exam, Mr. Corbin demonstrates: Continued radicular pain in the L1-2 distribution on the left into his groin and adductor region and hip region that tends to come and go but is getting worse. He continues to have some weakness with HF on the left and feels like his glute is weak. Denies any bowel or bladder isseus, but he has had some scrotal pain on the left that coinsides with the groin pain when he gets it. 5/5 DF/PF/EHL/FHL BLE otherwise and NV intact with L1-2 dermatomal difference to LT. I have explained to the patient that as their condition progresses it will cause further neurological deficits and eventual paralysis. Based on the patients imaging, physical exam, and the rapid progression and disabling nature of their symptoms, at this time I recommend surgery in the form of a: L1-2 LAMINOFORAMINOTOMY WITH MICRODISCECTOMY LEFT, MINIMALLY INVASIVE . I discussed the risk and benefits of this procedure at length with Mr. Corbin. The patient agreed to considered pursuing the procedure abovementioned. Prior to surgery, she should follow up with her PCP (Cardio, ID, IM etc) for clearance. Questions were invited and answered, and the patient wishes to proceed as outlined below. Currently, I am recommendin.L1-2 LAMINOFORAMINOTOMY WITH MICRODISCECTOMY LEFT, MINIMALLY INVASIVE Description of Procedure: L1-2 Left Laminoforaminotomy with microdiscectomy The patient was seen and examined in the preoperative area. All preoperative protocols were followed. Informed consent was obtained, risks and benefits of the procedure were discussed at length. Risks including bleeding infection damage to the surrounding tissue and risk of reoperation were discussed with the patient. Risk of anesthesia up to and including was discussed with the patient. These are outlined in the risk review. They were willing to accept these risks and all the risks of surgery. The patient was given a weight-based dose of antibiotics in the form of 2 g Ancef. The patient was seen and evaluated by the anesthesia team who deemed them fit for surgery. The site was marked, the patient was willing to proceed with the procedure. The patient was transferred to the operative suite by the Department of anesthesia. They were then drifted off to sleep by the department anesthesia and GETA was performed. The patient tolerated this well. [place] catheter was placed by nursing staff, a-traumatically. Once confirmation of lines and ventilation the patient was transferred to a prone Cody table very carefully. All bony prominences including wrists, elbows, axilla, chest, hips, and thighs, and feet were padded very well. Special attention was paid to the genitalia, and these were padded accordingly. SCDs were placed on bilateral lower extremities and were connected. Arms were well padded and placed on arm boards up and out in the 90/90 position. Once in position, again we confirmed good ventilation capabilities and that lines were running appropriately. The patients Lumbar spine was then exposed. 1010s were placed outlining the incision site. Standard alcohol was used to clean the incision site and allowed to dry. C-arm was used to needle localize the pedicles at L1-2 and bio-salo the patient and confirm level for incision which was marked with a skin marker. Ope rative briefing was performed with all teams and everyone in agreement to proceed. The patient was then prepped and draped in a normal sterile fashion. Timeout was then performed, and all parties agreed with the procedure to be performed. Skin incision was made over the previously marked area and dissection taken down to the deep fascia which was split just off midline for a midline sparing jared juares. C arm was then used to localize tubular retractors at L1-2 interspace and interlaminar area. Sequential dilation was done and 26 mm tube x 70 mm tube placed and secured to the table AP and Lateral image confirmed good placement. Microscope was then brought in for visualization. Limited myomectomy was done and then Reid-laminotomy, partial medial facetectomy and foraminotomy were performed at L1-2 using high speed emily and Kerrison rongure. The ligamentum flavum was removed with Kerrison and curette. Dura and roots protected. The disc space was identified along with the herniation. 11 blade was used to make small annulotomy and micro-pituitary used to remove loose disc fragments. Once fragments were removed, down biting curette was used to push any medial fragments down and towards the annulotomy and decompress centrally. The disc space was irrigated, and any loose fragments removed again. Bipolar was used for hemostasis and scarring of the annulotomy. The area was irrigated, and meticulous hemostasis performed. The bed was inspected, and all roots have ample room and are decompressed along with the dura. There were no injuries. Retractors were then removed. The wound was copiously irrigated with NSS. The deep fascia was closed with 0 PDS. Deep sub-q with 0 Vicryl and superficial with 2-0 Vicryl. Subcuticular was closed with 3-0 stratafix. The wound edges approximated well. The wound was then cleaned, and glue tape placed on the skin and allowed to dry. It was then Covered with an Opifoam dressing. The patient was then transferred off the table back to their hospital bed a- traumatically. They were extubated by the department of anesthesia. They were then transferred to PACU in stable condition having tolerated the procedure with no complications.
--- NOTE | 2024-02-16 09:39 | FL ---
EXAMINATION TYPE: FL guidance operating room, XR lumbar spine 2 or 3V fluoroscopy time 23.6 seconds with a total of 7 submitted images to PACS. Please see the operative/procedural note for further deta ils. DAP: 8.0483 mGym2 Gycm2 uGym2 cGycm2 (Normal > 0.6; Mild 0.35 - 0.59, Moderate 0.12 - 0.34, Severe <0 .12)
[2024-02-16] MEDS: HYDROmorphone 0.5 MG/0.5 ML SYRINGE IVP PRN (09:57)
[2024-02-16 10:06] VITALS: TEMP 97
[2024-02-16] MEDS: fentaNYL (PF) 50 MCG/ML 2 ML AMP IVP PRN (10:13)
[2024-02-16 11:05] VITALS: BP 142/86; PULSE 66; RESP 18
== END 2024-02-16 11:50 | disposition home or self-care (01) ==
LOC: OR 05:44
PROVIDERS: ATTEND Orthopaedic Surgery
DX: M51.16 Intervertebral disc disorders with radiculopathy, lumbar region (principal); M48.061 Spinal stenosis, lumbar region without neurogenic claudication; M47.26 Other spondylosis with radiculopathy, lumbar region; M51.06 Intervertebral disc disorders with myelopathy, lumbar region; K21.9 Gastro-esophageal reflux disease without esophagitis; Z79.899 Other long term (current) drug therapy
CPT/HCPCS: 72100; 63030; J2250; J0330; J2710; J0690; J2405; J2001; J3010; J1885; J1170 ×2; J2704; J0665